=== PATIENT | male | born 1995 | race Caucasian/White ===

== ENCOUNTER 2018-11-23 07:56 | Emergency (ER) | payer OTHER ==
[2018-11-23 08:28] VITALS: BP 103/58
--- NOTE | 2018-11-23 08:46 | UC ---
Throat Pain/Nasal Brayan HPI - HPI Summary HPI Summary: Patient is a 23-year-old male presenting with sore throat 2 days. Notes nasal congestion and mild productive cough. Notes chills. Denies ear pain, sinus tenderness. Denies shortness of breath and wheezing. Denies nausea, vomiting, diarrhea, and abdominal pain. Denies headache, fever. Patient states There has been going around his workplace and wants to make sure that he does not have strep. - History of Current Complaint Chief Complaint: UCGeneralIllness Stated Complaint: THROAT COMPLAINT Time Seen by Provider: 11/23/18 08:36 Hx Obtained From: Patient Onset/Duration: Sudden Onset Pain Intensity: 0 - Allergies/Home Medications Allergies/Adverse Reactions: Allergies Allergy/AdvReac Type Severity Reaction Status Date / Time No Known Allergies Allergy Verified 11/23/18 08:29 Home Medications: Home Medications Ibuprofen TAB* [Advil TAB*] 200 mg PO ONCE 11/23/18 [History Confirmed 11/23/18] PMH/Surg Hx/FS Hx/Imm Hx Previously Healthy: Yes - Surgical History Surgical History: None - Family History Known Family History: Positive: Non-Contributory - Social History Alcohol Use: None Substance Use Type: None Smoking Status (MU): Heavy Every Day Tobacco Smoker Type: Cigarettes Amount Used/How Often: 1 pack day - Immunization History Vaccination Up to Date: Yes Review of Systems All Other Systems Reviewed And Are Negative: Yes Constitutional: Positive: Chills. Negative: Fever, Fatigue Eyes: Positive: Negative ENT: Positive: Sore Throat, Nasal Discharge, Sinus Congestion. Negative: Ear Ache, Sinus Pain/Tenderness Respiratory: Positive: Cough. Negative: Shortness Of Breath Cardiovascular: Positive: Negative. Negative: Palpitations, Chest Pain Gastrointestinal: Positive: Negative Genitourinary: Positive: Negative Musculoskeletal: Positive: Negative Neurological: Positive: Negative Physical Exam Triage Information Reviewed: Yes Appearance: Well-Appearing, No Pain Distress, Well-Nourished Vital Signs: Initial Vital Signs Temp 98.1 F 11/23/18 08:23 Pulse 90 11/23/18 08:23 Resp 18 11/23/18 08:23 BP 103/58 11/23/18 08:23 Pulse Ox 100 11/23/18 08:23 Lab Results 11/23/18 Range/Units 08:32 Group A Strep Rapid Negative (Negative) Vital Signs Reviewed: Yes Eyes: Positive: Conjunctiva Clear ENT: Positive: Hearing grossly normal, Pharynx normal, Nasal congestion, Nasal drainage, TMs normal, Uvula midline. Negative: TM bulging, TM dull, TM red, Tonsillar swelling, Tonsillar exudate - Abdomen is, Sinus tenderness Neck exam: Normal Neck: Positive: Supple, Nontender, No Lymphadenopathy Respiratory Exam: Normal Respiratory: Positive: Lungs clear, Normal breath sounds, No respiratory distress, No accessory muscle use Cardiovascular Exam: Normal Cardiovascular: Positive: RRR Neurological: Positive: Alert Psychological: Positive: Age Appropriate Behavior Throat Pain/Nasal Course/Dx - Course Course Of Treatment: Discussed negative strep test with patient. Instructed him to continue over-the -counter cough medications. Instructed him to take Mucinex as prescribed for congestion. Told him to follow up with PCP if symptoms persist. Directed him to return or go to the emergency room if symptoms worsen. Patient voiced understanding and agreed to treatment plan. - Differential Dx/Diagnosis Provider Diagnosis: Upper respiratory infection Discharge ED - Sign-Out/Discharge Documenting (check all that apply): Patient Departure All imaging exams completed and their final reports reviewed: No Studies - Discharge Plan Condition: Stable Disposition: HOME Prescriptions: guaiFENesin ER TAB [Mucinex*] 600 mg PO BID PRN #20 tab.er PRN Reason: Congestion Patient Education Materials: Upper Respiratory Infection (ED) Forms: *Work Release Referrals: Romeo Grimes MD [Primary Care Provider] - If Needed Additional Instructions: As discussed, your rapid strep test was negative today. You may continue to take over the counter cough and cold medications for your cold symptoms. You may take Mucinex to help reduce mucus production. You may use nasal saline spray as directed for symptomatic relief. You may take ibuprofen as directed for pain relief. Get plenty of rest and fluids. Return or follow up with your primary care doctor if your symptoms worsen or do not resolve within 7 days. - Billing Disposition and Condition Condition: STABLE Disposition: Home - Attestation Statements Provider Attestation: I was available for consult. This patient was seen by the SE[facility]INO. The patient was not presented to, seen by, or examined by me. -Narayan
== END 2018-11-23 09:03 | disposition home or self-care (01) ==
LOC: UCCORT 07:56
DX: J06.9 Acute upper respiratory infection, unspecified (principal); F17.210 Nicotine dependence, cigarettes, uncomplicated
CPT/HCPCS: 87651; 99202; G0463